=== PATIENT | male | born 1985 | race African-American/Black ===

== ENCOUNTER 2019-05-07 10:47 | Emergency (ER) | payer MEDICAID ==
[~2019-05-07] VITALS: Ht 180.3 cm; Wt 83.0 kg
[2019-05-07 11:17] VITALS: BP 120/74
[2019-05-07 12:53] LABS: CLARITY URINE CLEAR (CLEAR); COLOR URINE YELLOW (YELLOW); KETONES URINE NEGATIVE (NEGATIVE); LEUKOCYTE ESTERASE URINE 1+ (NEGATIVE); NITRITE URINE NEGATIVE (NEGATIVE); OCCULT BLOOD URINE NEGATIVE (NEGATIVE); PROTEIN URINE NEGATIVE (NEGATIVE); SPECIFIC GRAVITY URINE 1.017 (1.005-1.030)
== END 2019-05-07 13:18 | disposition left against medical advice (07) ==
LOC: ER 11:25
DX: A64 Unspecified sexually transmitted disease (principal); Z53.21 Procedure and treatment not carried out due to patient leaving prior to being seen by health care provider
CPT/HCPCS: 81003

== ENCOUNTER 2019-05-07 20:36 | Emergency (ER) | payer BC, MEDICAID ==
[~2019-05-07] VITALS: Ht 177.8 cm; Wt 85.0 kg
[2019-05-07 22:51] VITALS: BP 128/72
== END 2019-05-07 22:51 | disposition home or self-care (01) ==
LOC: ER 20:36
DX: N30.00 Acute cystitis without hematuria (principal); N34.2 Other urethritis; F12.10 Cannabis abuse, uncomplicated
CPT/HCPCS: 99283